=== PATIENT | female | born 1990 | race Caucasian/White ===

== ENCOUNTER 2019-01-27 03:50 | Emergency (ER) | payer BC ==
[~2019-01-27] VITALS: Ht 175.3 cm; Wt 68.0 kg
[2019-01-27 05:20] LABS: URINE BILIRUBIN NEGATIVE (Negative); URINE BLOOD NEGATIVE (Negative); URINE CLARITY CLEAR; URINE COLOR YELLOW; URINE GLUCOSE-RANDOM NEGATIVE (Negative); URINE KETONES NEGATIVE (Negative); URINE LEUKOCYTES NEGATIVE (Negative); URINE NITRITE NEGATIVE (Negative); URINE PROTEIN NEGATIVE (Negative); URINE SPECIFIC GRAVITY <= 1.005 (1.005-1.030); URINE UROBILINOGEN 0.2 E.U./dl (0.2-1.0)
[2019-01-27 05:25] LABS: AMP/METHAMP Negative (Negative); BARBITURATES Negative (Negative); BENZODIAZEPINES Negative (Negative); COCAINE Negative (Negative); METHADONE Negative (Negative); OPIATES Negative (Negative); PCP Negative (Negative); THC Negative (Negative)
[2019-01-27] MEDS ORDERED: KEFLEX500 M1 PO (06:07)
[2019-01-27] MEDS ORDERED: HYDROCODON-ACE1 EAC7 PO (06:07)
[2019-01-27 06:23] VITALS: BP 120/70
== END 2019-01-27 06:51 | disposition home or self-care (01) ==
LOC: M.ERS 03:50
PROVIDERS: Personal Emergency Response Attendant
DX: S06.0X9A Concussion with loss of consciousness of unspecified duration, initial encounter (principal); S61.216A Laceration without foreign body of right little finger without damage to nail, initial encounter; F10.129 Alcohol abuse with intoxication, unspecified; W17.89XA Other fall from one level to another, initial encounter; Y93.89 Activity, other specified; Y92.89 Other specified places as the place of occurrence of the external cause; Y99.8 Other external cause status; Y90.5 Blood alcohol level of 100-119 mg/100 ml